=== PATIENT | male | born 1955 | race Caucasian/White ===

== ENCOUNTER 2020-08-10 10:44 | Emergency (ER) | payer MEDICARE ==
[2020-08-10 11:05] VITALS: RESP 18
[2020-08-10] MEDS ORDERED: HYDROmorphone 1 MG/ML 1 ML SYRINGE IVP STA (11:46)
--- NOTE | 2020-08-10 12:42 | ED ---
Male Urogenital HPI - General Chief complaint: Urogenital Stated complaint: Male Pain Time Seen by Provider: 08/10/20 11:21 Source: patient Mode of arrival: ambulatory Limitations: no limitations - History of Present Illness Initial comments: Patient is a 64-year-old male presenting to the emergency Department with complaints of pain of his left inguinal area. Patient states he's had a hernia in this location for approximately 35 years, started off very small, size of a golf ball but over the last few years secondary to him developing COPD and c oughing a lot more, the size has increased dramatically. He states over the last couple weeks he feels like its getting bigger and more discomfort so he came in for evaluation. He states he has not seen a surgeon for this, and he forgot to mention it to his PCP at his appointment a few weeks ago. He denies any nausea or vomiting, he states at rest it is not painful, no trouble urinating. He's had no fevers or chills. He has no further complaints at this time. - Related Data Allergies Allergy/AdvReac Type Severity Reaction Status Date / Time No Known Allergies Allergy Verified 08/10/20 11:01 Review of Systems ROS Statement: Those systems with pertinent positive or pertinent negative responses have been documented in the HPI. ROS Other: All systems not noted in ROS Statement are negative. Past Medical History Past Medical History: COPD, Hypertension Past Surgical History: Heart Catheterization, Orthopedic Surgery Additional Past Surgical History / Comment(s): L Past Psychological History: No Psychological Hx Reported Smoking Status: Current every day smoker Past Alcohol Use History: Daily Past Drug Use History: Marijuana General Exam - General Exam Comments Initial Comments: GENERAL: Patient is well-developed and well-nourished. Patient is nontoxic and in no acute distress. HEAD: Atraumatic, normocephalic. EYES: Pupils equal round and reactive to light, extraocular movements intact, sclera anicteric, conjunctiva are normal. Eyelids were unremarkable. ENT: Nares patent, oropharynx clear without exudates. Moist mucous membranes. NECK: Normal range of motion, supple without lymphadenopathy or JVD. LUNGS: Unlabored respirations. Breath sounds clear to auscultation bilaterally and equal. No wheezes rales or rhonchi. HEART: Regular rate and rhythm without murmurs, rubs or gallops. ABDOMEN: Soft, nontender, normoactive bowel sounds. No guarding, no rebound. No masses appreciated. : Patient has a large left inguinal hernia, about the size of a grapefruit, this is partially reducible. MUSCULOSKELETAL: Normal extremities with adequate strength and normal range of motion, no pitting or edema. No clubbing or cyanosis. NEUROLOGICAL: Patient is alert and oriented x 3. Normal speech, normal gait. PSYCH: Normal mood, normal affect. SKIN: Warm, Dry, normal turgor, no rashes or lesions noted. Limitations: no limitations Course Vital Signs 08/10/20 11:01 Temperature 97.8 F Pulse Rate 69 Respiratory 18 Rate Blood Pressure 180/112 O2 Sat by Pulse 96 Oximetry Medical Decision Making - Medical Decision Making Patient is a 64-year-old male here with a large left inguinal hernia that thing increasing in size over the past year, he has had this for approximately 35 years. Patient was given some pain medication and we were able to partially reduce the hernia, he has no further complaints. I discussed with patient and he needs to follow up with surgery. He is stable for discharge at this time, I discussed return parameters with him, he is in agreement with this plan of care. Case discussed with Dr. Goldberg. Disposition Clinical Impression: Left inguinal hernia Disposition: HOME SELF-CARE Condition: Stable Instructions (If sedation given, give patient instructions): Inguinal Hernia (ED) Additional Instructions: Please return to the Emergency Department if symptoms worsen or any other concerns. Follow up with surgeon as discussed. Is patient prescribed a controlled substance at d/c from ED?: No Referrals: Betina Kinney MD [Primary Care Provider] - 1-2 days Susu Ramos MD [STAFF PHYSICIAN] - 1-2 days Time of Disposition: 12:42
[2020-08-10 13:03] VITALS: BP 172/90; PULSE 85; TEMP 97.6
== END 2020-08-10 13:02 | disposition home or self-care (01) ==
LOC: EC 10:44
DX: K40.90 Unilateral inguinal hernia, without obstruction or gangrene, not specified as recurrent (principal); J44.9 Chronic obstructive pulmonary disease, unspecified; I10 Essential (primary) hypertension; F17.200 Nicotine dependence, unspecified, uncomplicated; F12.90 Cannabis use, unspecified, uncomplicated
CPT/HCPCS: 99283; 96374; J1170

== ENCOUNTER → 2020-10-31 | Outpatient (CLI) | payer MEDICARE ==
--- NOTE | 2020-10-31 11:47 | XR ---
EXAMINATION TYPE: XR chest 2V DATE OF EXAM: 10/31/2020 COMPARISON: NONE TECHNIQUE: PA and lateral views submitted. HISTORY: COPD FINDINGS: The lungs are clear and there is no pneumothorax, pleural effusion, or focal pneumonia. Upper infla tion. Heart size normal. No overt failure. Hypertrophic and degenerative change of the spine. IMPRESSION: 1. No acute process.
== END | disposition home or self-care (01) ==
LOC: RADXRMAIN 10:51
PROVIDERS: ATTEND Surgery Plastic and Reconstructive Surgery
DX: J44.9 Chronic obstructive pulmonary disease, unspecified (principal)
CPT/HCPCS: 71046; 93005

== ENCOUNTER 2020-11-23 11:11 | Day surgery (SDC) | payer MEDICARE ==
[2020-11-21 15:58] VITALS: BMI 30.7
[~2020-11-23 11:11] MED LIST: DEXAMETHASONE SOD PHOSPHATE 4 MG/ML 1 ML VIAL IV ONE; HEPARIN SODIUM,PORCINE/PF 5,000 UNIT/0.5 ML SYRINGE SQ PRN; LACTATED RINGERS 1,000 ML IV SCH; ONDANSETRON 4 MG/2 ML VIAL IVP ONE
--- NOTE | 2020-11-23 11:14 | P.GSHP ---
History of Present Illness H&P Date: 11/23/20 CHIEF COMPLAINT: Inguinal hernia, left HISTORY OF PRESENT ILLNESS: The patient is a 65-year-old male who presents with a history of swelling and pain along the left groin. He's noted increased swelling including pain of the area. Now he presents for repair of his inguinal hernia. PAST MEDICAL HISTORY: Please see list. PAST SURGICAL HISTORY: Please see list. MEDICATIONS: Please see list. ALLERGIES: Please see list. SOCIAL HISTORY: No illicit drug use FAMILY HISTORY: No reports of Crohn disease or ulcerative colitis. REVIEW OF ORGAN SYSTEMS: CONSTITUTIONAL: No reports of fevers or chills. No reports of weight loss despite prior attempts. GI: Denies any blood in stools or constipation. PHYSICAL EXAM: VITAL SIGNS: Stable GENERAL: Well-developed pleasant male in no acute distress. HEENT: No scleral icterus. Extraocular movements grossly intact. Moist buccal mucosa. NECK: Supple without lymphadenopathy. CHEST: Unlabored respirations. Equal bilateral excursions. CARDIOVASCULAR: Regular rate and rhythm. Distal 2+ pulses. ABDOMEN: Soft, nondistended. No peritoneal signs. Palpable defect of the left groin. MUSCULOSKELETAL: No clubbing, cyanosis, or edema. ASSESSMENT: 1. Inguinal hernia, left PLAN: 1. Recommend proceeding with a robotic inguinal repair with mesh with possible bilateral approach. 2. Benefits and risks of surgical intervention was discussed including possibility of open technique. 3. DVT prophylaxis. 4. Antibiotic prophylaxis. Past Medical History Past Medical History: COPD, Hypertension Additional Past Medical History / Comment(s): left inguinal hernia History of Any Multi-Drug Resistant Organisms: None Reported Past Surgical History: Heart Catheterization Additional Past Surgical History / Comment(s): L Past Anesthesia/Blood Transfusion Reactions: No Reported Reaction Additional Past Anesthesia/Blood Transfusion Reaction / Comment(s): never had general anesthesia Smoking Status: Current every day smoker - Past Family History Mother Family Medical History: Cancer Additional Family Medical History / Comment(s): colon Father Family Medical History: Myocardial Infarction (DC) Additional Family Medical History / Comment(s): at age of 47 Medications and Allergies Home Medications Medication Instructions Recorded Confirmed Type Acetaminophen [Tylenol Extra 500 - 1,000 mg PO DAILY PRN 11/21/20 11/21/20 History Strength] Albuterol Inhaler [Ventolin Hfa 2 puff INHALATION RT-QID PRN 11/21/20 11/21/20 History Inhaler] Budesonide/Formoterol Fumarate 2 puff INHALATION BID 11/21/20 11/21/20 History [Budesonide-Formoterol 160-4.5] Cholecalciferol [Vitamin D3 (25 50 mcg PO DAILY 11/21/20 11/21/20 History Mcg = 1000 Iu)] Zinc 50 mg PO Q72H 11/21/20 11/21/20 History lisinopriL 20 mg PO QAM 11/21/20 11/21/20 History Allergies Allergy/AdvReac Type Severity Reaction Status Date / Time No Known Allergies Allergy Verified 11/21/20 15:46
[2020-11-23] MEDS ORDERED: ACETAMINOPHEN TAB 500 MG TAB PO STA (11:16)
[2020-11-23] MEDS ORDERED: TAMSULOSIN 0.4 MG CAP.ER.24H PO STA (11:16)
[2020-11-23] MEDS ORDERED: GABAPENTIN 300 MG CAP PO STA (11:16)
[2020-11-23] MEDS ORDERED: MELOXICAM 7.5 MG TAB PO SCH (11:30)
[2020-11-23] MEDS ORDERED: hydrALAZINE HCL 20 MG/ML 1 ML VIAL IVP ONE (12:35)
[2020-11-23] MEDS ORDERED: LIDOCAINE 1% (10MG/ML) FOR IV START INTRADERMA ONE (12:38)
[2020-11-23 12:44] LABS: Basophils # (A) 0.1 k/uL (0-0.2); Basophils % (A) 1 %; Eosinophils # (A) 0.3 k/uL (0-0.7); Eosinophils % (A) 5 %; HCT 36.2 % (39.0-53.0); HGB 11.9 gm/dL (13.0-17.5); Hypochromasia Slight; Lymphocytes # (A) 1.2 k/uL (1.0-4.8); Lymphocytes % (A) 19 %; MCH 31.5 pg (25.0-35.0); MCHC 32.9 g/dL (31.0-37.0); MCV 95.6 fL (80.0-100.0); Mean Platelet Volume 8.8; Monocytes # (A) 0.6 k/uL (0-1.0); Monocytes % (A) 9 %; Neutrophils # (A) 3.8 k/uL (1.3-7.7); Neutrophils % (A) 63 %; Platelet Count 265 k/uL (150-450); Poikilocytosis Slight; RBC 3.79 m/uL (4.30-5.90); RDW 13.7 % (11.5-15.5); WBC 6.1 k/uL (3.8-10.6)
[2020-11-23] MEDS ORDERED: MIDAZOLAM 2 MG/2 ML VIAL IVP ONE (12:52)
[2020-11-23 13:45] LABS: ALT 41 U/L (4-49); AST 53 U/L (17-59); African American GFR (CKD) >90 (>60 ml/min/1.73 sqM); Albumin 3.9 g/dL (3.5-5.0); Alkaline Phosphatase 96 U/L (38-126); Anion Gap 7 mmol/L; Blood Urea Nitrogen 10 mg/dL (9-20); Calcium 9.1 mg/dL (8.4-10.2); Carbon Dioxide 23 mmol/L (22-30); Chloride 111 mmol/L (98-107); Glucose 109 mg/dL (74-99); Non-African American GFR(CKD) >90 (>60 ml/min/1.73 sqM); Potassium 3.9 mmol/L (3.5-5.1); Sodium 141 mmol/L (137-145); Total Bilirubin 0.5 mg/dL (0.2-1.3); Total Protein 6.6 g/dL (6.3-8.2)
[2020-11-23] MEDS ORDERED: PHENYLEPHRINE-0.9% NACL SYG 1,000 MCG/10 ML SYRINGE ONE (14:10)
[2020-11-23] MEDS ORDERED: MIDAZOLAM 2 MG/2 ML VIAL ONE (14:10)
[2020-11-23] MEDS ORDERED: NEOSTIGMINE 1 MG/ML 10 ML VIAL ONE (14:10)
[2020-11-23] MEDS ORDERED: PROPOFOL 10 MG/ML 20 ML VIAL IV ONE (14:10)
[2020-11-23] MEDS ORDERED: SODIUM CHLORIDE 0.9% (PF) 10 ML VIAL ONE (14:10)
[2020-11-23] MEDS ORDERED: ROCURONIUM 10 MG/ML (5 ML VIAL) IV ONE (14:10)
[2020-11-23] MEDS ORDERED: LIDOCAINE 1% INJ 10MG/ML (20 ML MDV) ONE (14:10)
[2020-11-23] MEDS ORDERED: fentaNYL (PF) 50 MCG/ML 2 ML AMP ONE (14:10)
[2020-11-23] MEDS ORDERED: KETAMINE 10 MG/ML 20 ML VIAL ONE (14:10)
[2020-11-23] MEDS ORDERED: SUCCINYLCHOLINE CHLORIDE VIAL 200 MG/10 ML VIAL IV ONE (14:10)
[2020-11-23] MEDS ORDERED: ROPIVACAINE 5 MG/ML 30 ML VIAL ONE (14:10)
[2020-11-23] MEDS ORDERED: GLYCOPYRROLATE 0.2 MG/ML 2 ML VIAL ONE (14:10)
[2020-11-23] MEDS ORDERED: HYDROmorphone (PF) 1 MG/ML ONE (14:10)
[2020-11-23] MEDS ORDERED: LACTATED RINGERS 1,000 ML IV ONE (14:18)
[2020-11-23] MEDS ORDERED: LIDOCAINE 0.5%-EPI 1:200,000 50 ML VIAL SQ ONE (14:48)
[2020-11-23 16:33] VITALS: TEMP 97.7
--- NOTE | 2020-11-23 16:47 | P.OP ---
Date of Procedure: 11/23/20 Description of Procedure: SURGEON: SUSU RAMOS MD PREOPERATIVE DIAGNOSES: 1. Initial left inguinal hernia 2. Chronic obstructive pulmonary disease 3. Hypertensive heart disease 4. Tobacco abuse disorder POSTOPERATIVE DIAGNOSES: 1. Initial left inguinal hernia, incarcerated with sigmoid colon/large bowel obstruction 2. Chronic obstructive pulmonary disease 3. Hypertensive heart disease 4. Tobacco abuse disorder 5. Pelvic adhesions, left lower quadrant OPERATION: 1. Robotic assisted [place] Xi laparoscopic lysis of adhesions over 30 minutes 2. Robotic assisted [place] laparoscopic reduction and repair of left inguinal hernia repair with ventralight ST mesh, 11.4 cm. 3. Excision of left inguinal lipoma, 5 x 4 cm, subfascial Anesthesia: GETA, local Estimated Blood Loss (ml): 5 Pathology: other (Left inguinal sac with lipoma) Condition: stable Disposition: floor COMPLICATIONS: None. Operative Findings: 1. Large left inguinal indirect hernia, 3 cm 2. Incarcerated sigmoid colon with obstruction produced from left inguinal hernia 3. Peritoneal adhesions involving the left pelvis with lysis of adhesions over 30 minutes INDICATIONS: The patient is a 65-year-old gentleman who presents with left inguinal hernia. Now presents for definitive surgical intervention. Laparoscopic versus open and robotic approaches were discussed. Benefits and risks including bleeding, infection, injury to the vas deferens as well as sterility and chronic groin pain were reviewed. Placement of mesh was also described. Informed consent was obtained. DESCRIPTION: In the preoperative area, the patient was marked with indelible marker along the left groin. The patient was brought to the operating room and laid in supine position. After general induction, the abdomen had been prepped and draped in standard sterile fashion. Ioban draping was also placed. Prior to incision, a timeout protocol was confirmed with surgical team regarding patient's name including procedures to be performed and location along the left groin. Initial positioning for the robotic assisted ports were selected whereby 20 cm superior to the target anatomy, 0 degree 5 mm laparoscopic trocar entry was performed at the left upper quadrant. The abdomen was insufflated to 15 mmHg which he had tolerated well. Diagnostic laparoscopy demonstrated left pelvic adhesions of the sigmoid colon. Additionally the sigmoid colon was incarcerated into the left groin with a large indirect left inguinal hernia over 3 cm in size. The right groin was unremarkable. Next, along the epigastrium, 8 mm robot trocar was placed. An 8-mm robotic trocar was placed under direct visualization at the right upper quadrant. The 5 mm port was exchanged for a 8 mm trocar. All trocars were positioned between 8 to 10-cm apart from each other. The patient was placed in steep reverse Trendelenburg position, 21. The [employer] XI robot was primed, draped, prepared for docking along the upper abdomen of the patient. I then went to the [employer] Xi console. The plumber assistant was at bedside for exchange of the robot arms and equipment. At the left groin, over 3 cm direct inguinal hernia was identified. The hernia sac was evaginated whereby the peritoneum was scored using Endo scissors with cautery. The hernia sac had reached to the scrotum and dissected free from surrounding tissue. Additionally left inguinal lipoma incorporating the sac was resected over 5 x 4 cm in size and subfascial. Once completely reduced into the abdominal cavity, the peritoneal sac of the hernia was identified. The sac was resected and then passed off for further pathological analysis. The size of the hernia defect was 3 cm with intraoperative films obtained. Using nonabsorbable 2-0 VLOC, the peritoneal defect of the left inguinal hernia site was closed using a pursestring suture. The defect was found to be completely closed with complete reduction of the left inguinal hernia was confirmed. As an onlay, an 11.[address] mesh by [employer] was cut in half and entered into the abdominal cavity via the 8 mm trocar. The mesh was tacked to the pelvis using nonabsorbable 2-0 VLOC x 9-inch length sutures. The robot was undocked from the patient's bedside. I then rescrubbed into the case. Insufflation was released from the abdominal cavity and all instruments were removed from the abdominal cavity. Additional palm pressure was applied along the left groin as well as releasing any air along the scrotum and left groin. The rest of incisions were reapproximated using 4-0 Monocryl in a running subcuticular fashion. Local anesthetic was placed along the incision including for a groin block. Incisions were cleansed using dilute hydrogen peroxide. Liquid glue was applied to the skin. At the end of the procedure, the needle, sponge and instrument counts had been verified correct by the certified surgical technologist. The patient had tolerated the procedure well and was taken to the postanesthesia care unit in stable condition. Intraoperative findings were described to the patient's family who were pleased with the level of care. Plan - Discharge Summary Discharge Rx Participant: No New Discharge Prescriptions: New Ibuprofen [Motrin] 600 mg PO Q8HR PRN #30 tab PRN Reason: Pain Tamsulosin [Flomax] 0.4 mg PO DAILY #7 cap Acetaminophen Tab [Tylenol Tab] 1,000 mg PO Q6HR PRN #30 tablet PRN Reason: Pain Simethicone [Gas-X] 125 mg PO AC-TID PRN #20 cap PRN Reason: Pain Continue Budesonide/Formoterol Fumarate [Budesonide-Formoterol 160-4.5] 2 puff INHALATION BID lisinopriL 20 mg PO QAM Cholecalciferol [Vitamin D3 (25 Mcg = 1000 Iu)] 50 mcg PO DAILY Albuterol Inhaler [Ventolin Hfa Inhaler] 2 puff INHALATION RT-QID PRN PRN Reason: sob Zinc 50 mg PO Q72H Discontinued Acetaminophen [Tylenol Extra Strength] 500 - 1,000 mg PO DAILY PRN PRN Reason: Pain Discharge Medication List Albuterol Inhaler [Ventolin Hfa Inhaler] 2 puff INHALATION RT-QID PRN 11/21/20 [History] Budesonide/Formoterol Fumarate [Budesonide-Formoterol 160-4.5] 2 puff INHALATION BID 11/21/20 [History] Cholecalciferol [Vitamin D3 (25 Mcg = 1000 Iu)] 50 mcg PO DAILY 11/21/20 [History] Zinc 50 mg PO Q72H 11/21/20 [History] lisinopriL 20 mg PO QAM 11/21/20 [History] Acetaminophen Tab [Tylenol Tab] 1,000 mg PO Q6HR PRN #30 tablet 11/23/20 [Rx] Ibuprofen [Motrin] 600 mg PO Q8HR PRN #30 tab 11/23/20 [Rx] Simethicone [Gas-X] 125 mg PO AC-TID PRN #20 cap 11/23/20 [Rx] Tamsulosin [Flomax] 0.4 mg PO DAILY #7 cap 11/23/20 [Rx] Follow up Appointment(s)/Referral(s): Susu Ramos MD [STAFF PHYSICIAN] - 12/05/20 Patient Instructions/Handouts: Laparoscopic Herniorrhaphy (IP), Inguinal Hernia Repair (DC), *Surgery [facility] - Managing Your Pain After Surgery Without Opioids Activity/Diet/Wound Care/Special Instructions: Using antibacterial soap. No lifting over 10 pounds 2 weeks, December 07. May shower. No bathtub soaks for 2 weeks, December 07. Wear abdominal binder daily for comfort except for showering. Use ice along incisions for today to prevent swelling. Take tylenol, aleve/ibuprofen, simethicone scheduled for 3 days for best pain relief Discharge Disposition: HOME SELF-CARE
[2020-11-23] MEDS: HYDROmorphone 0.5 MG/0.5 ML SYRINGE IVP PRN ×2 (16:49→17:00)
[2020-11-23] MEDS ORDERED: IBUPROFEN 200 MG TAB PO ONE (17:34)
[2020-11-23 18:05] VITALS: BP 111/76; PULSE 86; RESP 18
[2020-11-23] MEDS ORDERED: TAMSULOSIN 0.4 MG CAP.ER.24H PO ONE (18:20)
[2020-11-23] MEDS ORDERED: SIMETHICONE 40 MG/0.6 ML DROPS 2,000 MG/30 ML BOTTLE PO ONE (18:20)
--- NOTE | 2020-11-23 20:17 | P.ANPRN ---
Procedure Note - Anesthesia - Nerve Block Performed Bilateral Erector Spinae Single Time Out Performed: Yes Date of Procedure: 11/23/20 Procedure Start Time: 12:51 Procedure Stop Time: 12:59 Location of Patient: PreOp Indication: Acute Post-Operative Pain, Requested by Surgeon Sedation Type: Sedate with meaningful contact maintained Preparation: Sterile Prep Position: Prone Needle Types: Pajunk Needle Gauge: 21 Ultrasound used to visualize needle placement: Yes Ultrasound used to observe medication spread: Yes Blood Aspirated: No Pain Paresthesia on Injection Noted: No Resistance on Injection: Normal Image Stored and Saved: Yes Events: Uneventful and Well Tolerated (ropi .5% 15 mL plus normal saline 15 mL given bilaterally at L1)
== END 2020-11-23 18:34 | disposition home or self-care (01) ==
LOC: OR 11:11
PROVIDERS: ATTEND Surgery Plastic and Reconstructive Surgery
DX: K40.30 Unilateral inguinal hernia, with obstruction, without gangrene, not specified as recurrent (principal); K66.0 Peritoneal adhesions (postprocedural) (postinfection); D17.79 Benign lipomatous neoplasm of other sites; J44.9 Chronic obstructive pulmonary disease, unspecified; I11.9 Hypertensive heart disease without heart failure; G47.33 Obstructive sleep apnea (adult) (pediatric); F17.200 Nicotine dependence, unspecified, uncomplicated; Z80.0 Family history of malignant neoplasm of digestive organs; Z98.890 Other specified postprocedural states; Z79.51 Long term (current) use of inhaled steroids; Z79.899 Other long term (current) drug therapy
CPT/HCPCS: 64999; 80053; 85025; 49650; C1781; J2250; J0330; J0360; J1100; J2710; J0690; J2405; J2001; J3010; J1170 ×2; J2795; J2370; J2704; J1644